=== PATIENT | female | born 1950 | race Caucasian/White ===

== ENCOUNTER 2018-12-12 16:27 | Inpatient (IN) ==
[2018-12-12] MEDS ORDERED: cloNIDine 0.1 MG TABLET PO STA (16:56)
[2018-12-12] MEDS ORDERED: ENOXAPARIN 100 MG/ML SYRINGE SUBCUT STA (17:31)
[2018-12-12] MEDS ORDERED: VANCOMYCIN INJ 1,000 MG in SODIUM CHLORIDE 0.9% 250 ML IV STA (17:31)
[2018-12-12] MEDS ORDERED: KETOROLAC 30 MG/1 ML VIAL IV STA (17:32)
[2018-12-12 18:42] LABS: Basophils # 0.1 10*3/uL (0.0-0.2); Basophils % 0.9 % (0.0-0.8); Eosinophils # 0.2 10*3/uL (0.0-0.87); Eosinophils % 1.8 % (0.00-10.9); Hematocrit 52.5 VOL% (35.7-47.0); Hemoglobin 17.1 GM/DL (12.0-16.0); Immature Granulocytes % 0.2 %; Immature Granulocytes Absolute 0.02 #; Lymphocytes # 1.4 10*3/uL (1.4-4.0); Lymphocytes % 15.7 % (21.3-54.2); Mean Corpuscular HGB Conc 32.6 GM/DL (32-36); Mean Corpuscular Volume 86.9 FL (87-102); Mean Platelet Volume 9.9 FL (9.6-12.0); Monocytes % 11.6 % (1.7-12.7); Neutrophils % 69.8 % (38.7-73.9); Platelet Count 199 T/CUMM (130-400); Red Blood Count 6.04 MC/CUMM (3.8-5.5); Red Cell Distribution Width 14.7 % (9.3-17.3); White Blood Count 8.7 T/CUMM (4-12)
[2018-12-12 18:57] LABS: INR 0.9; PT Patient Result 10.3 SECS (9.6-12.2); Partial Thromboplastin Time 29.9 SECS (20.8-36.0)
[2018-12-12 19:01] LABS: Bilirubin,Total 0.6 MG/DL (0.2-1.0); Calcium 9.6 MG/DL (8.5-10.1); Osmolality,Calculated 263.5 MOS/KG (273-304); Total Protein 7.8 G/DL (6.4-8.3)
[2018-12-12] MEDS ORDERED: hydrALAZINE 20 MG/1 ML VIAL IV PRN (21:22)
[2018-12-12] MEDS ORDERED: ONDANSETRON ODT 4 MG TABLET PO PRN (23:23)
[2018-12-12] MEDS ORDERED: NICOTINE 21 MG/24 HR PATCH TRANSDERM PRN (23:23)
[2018-12-12] MEDS ORDERED: traZODone 50 MG TABLET PO PRN (23:23)
[2018-12-12] MEDS ORDERED: DOCUSATE SODIUM 100 MG CAPSULE PO PRN (23:23)
[2018-12-12] MEDS ORDERED: ACETAMINOPHEN 325 MG TABLET PO PRN (23:23)
[2018-12-12] MEDS ORDERED: MAGNESIUM SULF RIDER 2 GM in PREMIX 1 EACH IV PRN (23:23)
[2018-12-12] MEDS ORDERED: PROMETHAZINE 25 MG TABLET PO PRN (23:23)
[2018-12-12] MEDS ORDERED: MAGNESIUM SULF RIDER 4 GM in PREMIX 1 EACH IV PRN (23:23)
[2018-12-13] MEDS: SODIUM CHLORIDE 0.9% 1,000 ML IV SCH ×3 (00:35→17:50)
[2018-12-13] MEDS: TRIAMCINOLONE 0.1% OINT 15 GM TUBE TOP SCH ×3 (00:35→20:46)
[2018-12-13] MEDS: POTASSIUM CHLORIDE 20 MEQ TABLET PO PRN ×3 (00:35→04:32)
[2018-12-13] MEDS: carvediloL 6.25 MG TABLET PO SCH ×3 (00:35→17:07)
[2018-12-13 02:34] LABS: Basophils # 0.1 10*3/uL (0.0-0.2); Basophils % 0.9 % (0.0-0.8); Eosinophils # 0.2 10*3/uL (0.0-0.87); Eosinophils % 3.1 % (0.00-10.9); Hematocrit 44.2 VOL% (35.7-47.0); Hemoglobin 14.5 GM/DL (12.0-16.0); Immature Granulocytes % 0.4 %; Immature Granulocytes Absolute 0.03 #; Lymphocytes # 1.7 10*3/uL (1.4-4.0); Lymphocytes % 22.8 % (21.3-54.2); Mean Corpuscular HGB Conc 32.8 GM/DL (32-36); Mean Platelet Volume 10.8 FL (9.6-12.0); Monocytes % 12.2 % (1.7-12.7); Neutrophils % 60.6 % (38.7-73.9); Platelet Count 167 T/CUMM (130-400); Red Blood Count 5.08 MC/CUMM (3.8-5.5); Red Cell Distribution Width 14.5 % (9.3-17.3); White Blood Count 7.4 T/CUMM (4-12)
[2018-12-13 02:52] LABS: Calcium 8.8 MG/DL (8.5-10.1)
[2018-12-13] MEDS ORDERED: ENOXAPARIN 80 MG/0.8 ML SYRINGE SUBCUT SCH (06:30)
[2018-12-13] MEDS: VANCOMYCIN INJ 1,250 MG in SODIUM CHLORIDE 0.9% 250 ML IV SCH (08:31)
[2018-12-13] MEDS: SERTRALINE 100 MG TABLET PO SCH (08:33)
[2018-12-13] MEDS: ASPIRIN EC 81 MG TABLET PO SCH (08:33)
[2018-12-13] MEDS: CHOLECALCIFEROL 1,000 UNIT TABLET PO SCH (08:33)
[2018-12-13] MEDS: GABAPENTIN 300 MG CAPSULE PO SCH (08:33)
[2018-12-13] MEDS: MULTIVITAMIN (CENTRUM) TABLET PO SCH (08:33)
[2018-12-13] MEDS: PANTOPRAZOLE 40 MG TABLET PO SCH (08:34)
[2018-12-13] MEDS: RIVAROXABAN 15 MG TABLET PO SCH (17:07)
[2018-12-14 04:35] LABS: Basophils # 0.1 10*3/uL (0.0-0.2); Basophils % 0.8 % (0.0-0.8); Eosinophils # 0.2 10*3/uL (0.0-0.87); Eosinophils % 2.6 % (0.00-10.9); Hematocrit 45.3 VOL% (35.7-47.0); Hemoglobin 14.5 GM/DL (12.0-16.0); Immature Granulocytes % 0.2 %; Immature Granulocytes Absolute 0.01 #; Lymphocytes # 1.4 10*3/uL (1.4-4.0); Lymphocytes % 22.2 % (21.3-54.2); Mean Corpuscular Volume 88.8 FL (87-102); Mean Platelet Volume 10.2 FL (9.6-12.0); Neutrophils % 61.2 % (38.7-73.9); Platelet Count 161 T/CUMM (130-400); Red Cell Distribution Width 14.5 % (9.3-17.3); White Blood Count 6.5 T/CUMM (4-12)
[2018-12-14 04:48] LABS: Calcium 8.4 MG/DL (8.5-10.1); Osmolality,Calculated 277.7 MOS/KG (273-304)
[2018-12-14] MEDS: SODIUM CHLORIDE 0.9% 1,000 ML IV SCH (06:43)
[2018-12-14] MEDS: MULTIVITAMIN (CENTRUM) TABLET PO SCH (08:44)
[2018-12-14] MEDS: GABAPENTIN 300 MG CAPSULE PO SCH (08:44)
[2018-12-14] MEDS: VANCOMYCIN INJ 1,250 MG in SODIUM CHLORIDE 0.9% 250 ML IV SCH (08:44)
[2018-12-14] MEDS: PANTOPRAZOLE 40 MG TABLET PO SCH (08:44)
[2018-12-14] MEDS: CHOLECALCIFEROL 1,000 UNIT TABLET PO SCH (08:44)
[2018-12-14] MEDS: ASPIRIN EC 81 MG TABLET PO SCH (08:44)
[2018-12-14] MEDS: carvediloL 6.25 MG TABLET PO SCH (08:45)
[2018-12-14] MEDS: RIVAROXABAN 15 MG TABLET PO SCH (08:45)
[2018-12-14] MEDS: SERTRALINE 100 MG TABLET PO SCH (08:45)
[2018-12-14] MEDS: TRIAMCINOLONE 0.1% OINT 15 GM TUBE TOP SCH (08:45)
[2018-12-14 12:50] VITALS: BP 152/77
== END 2018-12-14 13:15 | disposition home or self-care (01) | DRG 300 ==
LOC: N.ED 16:27 → N.EDINP 20:18 → N.4E 20:31
PROVIDERS: ADMIT Internal Medicine; ATTEND Internal Medicine

== ENCOUNTER 2019-06-22 16:13 | Inpatient (IN) ==
[2019-06-22] MEDS ORDERED: ONDANSETRON 4 MG/2 ML VIAL IV STA (16:54)
[2019-06-22] MEDS ORDERED: HYDROmorphone 2 MG/1 ML VIAL IV STA (16:54)
[2019-06-22] MEDS ORDERED: SODIUM CHLORIDE 0.9% 1,000 ML IV STA ×2 (16:54→20:48)
[2019-06-22 18:42] LABS: Basophils # 0.1 10*3/uL (0.0-0.2); Basophils % 0.5 % (0.0-0.8); Eosinophils # 0.3 10*3/uL (0.0-0.87); Hematocrit 40.5 VOL% (35.7-47.0); Hemoglobin 12.8 GM/DL (12.0-16.0); Immature Granulocytes % 2.4 %; Immature Granulocytes Absolute 0.35 #; Lymphocytes # 1.5 10*3/uL (1.4-4.0); Lymphocytes % 9.8 % (21.3-54.2); Mean Corpuscular HGB Conc 31.6 GM/DL (32-36); Mean Platelet Volume 10.7 FL (9.6-12.0); Monocytes % 8.1 % (1.7-12.7); Neutrophils % 77.2 % (38.7-73.9); Platelet Count 235 T/CUMM (130-400); Red Blood Count 4.88 MC/CUMM (3.8-5.5); Red Cell Distribution Width 16.5 % (9.3-17.3); White Blood Count 14.9 T/CUMM (4-12)
[2019-06-22] MEDS ORDERED: VANCOMYCIN INJ 1,250 MG in SODIUM CHLORIDE 0.9% 250 ML IV STA (18:48)
[2019-06-22] MEDS ORDERED: CEFEPIME 2,000 MG in SODIUM CHLORIDE 0.9% 100 ML IV STA (18:49)
[2019-06-22 19:04] LABS: Albumin 1.9 G/DL (3.4-5.0); Band Neutrophils 1 % (0-10); Bilirubin,Total 0.4 MG/DL (0.2-1.0); Calcium 8.7 MG/DL (8.5-10.1); Eosinophils 7 % (0-10); Lymphocytes 16 % (20-55); Metamyelocytes 1 %; Osmolality,Calculated 266.1 MOS/KG (273-304); Segmented Neutrophils 74 % (50-85); Total Cells Counted 100; Total Protein 6.9 G/DL (6.4-8.3)
[2019-06-22 19:05] LABS: Platelet Estimate Normal; Reactive Lymphocytes Slight
[2019-06-22] MEDS ORDERED: POTASSIUM CHLORIDE 20 MEQ TABLET PO STA (19:09)
[2019-06-22] MEDS ORDERED: MORPHINE 4 MG/1 ML VIAL IV PRN (20:37)
[2019-06-22] MEDS ORDERED: ONDANSETRON 4 MG/2 ML VIAL IV PRN (20:37)
[2019-06-22] MEDS ORDERED: NICOTINE 21 MG/24 HR PATCH TRANSDERM PRN (20:37)
[2019-06-22] MEDS ORDERED: ACETAMINOPHEN 325 MG TABLET PO PRN (20:37)
[2019-06-22] MEDS ORDERED: guaiFENesin/DM ER 600-30 MG TABLET PO PRN (20:37)
[2019-06-22] MEDS ORDERED: GLUCAGON 1 MG VIAL IM PRN (20:37)
[2019-06-22] MEDS ORDERED: ALUMINUM/MAGNES/SIMETH MAX STR 30 ML UDCUP PO PRN (20:37)
[2019-06-22] MEDS ORDERED: diphenhydrAMINE CAP 25 MG CAPSULE PO PRN (20:37)
[2019-06-22] MEDS ORDERED: hydrALAZINE 20 MG/1 ML VIAL IV PRN (20:37)
[2019-06-22] MEDS ORDERED: DEXTROSE 50% 25 GM/50 ML VIAL IV PRN (20:37)
[2019-06-22] MEDS ORDERED: VANCOMYCIN INJ 1,000 MG in SODIUM CHLORIDE 0.9% 250 ML IV PRN (21:00)
[2019-06-22] MEDS ORDERED: VANCOMYCIN 1,000 MG VIAL ONE (21:18)
[2019-06-22] MEDS ORDERED: NOREPINEPHRINE 8 MG in SODIUM CHLORIDE 0.9% 242 ML IV PRN (22:57)
[2019-06-22] MEDS ORDERED: NOREPINEPHRINE 4 MG/4 ML VIAL IV ONE (23:00)
[2019-06-23] MEDS: SODIUM CHLORIDE 0.9% 1,000 ML IV SCH ×2 (01:00→15:20)
[2019-06-23 01:34] LABS: Apearance,Urine Slightly Hazy (Clear); Bacteria,Urine Moderate /HPF (Few); Bilirubin,Urine Negative (Negative); Blood, Urine Large mg/dL (Negative); Glucose,Urine (UA) Negative (Negative); Ketones,Urine Negative (Negative); Nitrite,Urine Negative (Negative); Protein,Urine 30 MG/DL; RBC,Urine 2 /HPF (0-4); Squamous Epithelial Cell,Urine Occasional /HPF (0-10); Urine Color Yellow (Yellow); Urine Specific Gravity 1.006 (1.001-1.035); Urine Urobilinogen < 2.0 EU/DL (0.2-1.0); WBC,Urine 12 /HPF (0-6)
[2019-06-23 04:18] LABS: Basophils # 0.1 10*3/uL (0.0-0.2); Basophils % 0.5 % (0.0-0.8); Eosinophils # 0.3 10*3/uL (0.0-0.87); Eosinophils % 1.8 % (0.00-10.9); Hematocrit 41.9 VOL% (35.7-47.0); Hemoglobin 13.1 GM/DL (12.0-16.0); Immature Granulocytes % 1.4 %; Immature Granulocytes Absolute 0.24 #; Lymphocytes # 1.4 10*3/uL (1.4-4.0); Mean Corpuscular HGB Conc 31.3 GM/DL (32-36); Mean Corpuscular Volume 84.3 FL (87-102); Mean Platelet Volume 10.3 FL (9.6-12.0); Monocytes % 8.1 % (1.7-12.7); Neutrophils % 80.2 % (38.7-73.9); Platelet Count 229 T/CUMM (130-400); Red Blood Count 4.97 MC/CUMM (3.8-5.5); White Blood Count 17.3 T/CUMM (4-12)
[2019-06-23 04:40] LABS: Albumin 1.7 G/DL (3.4-5.0); Bilirubin,Total 0.5 MG/DL (0.2-1.0); Calcium 8.4 MG/DL (8.5-10.1); Osmolality,Calculated 275.5 MOS/KG (273-304); Total Protein 6.2 G/DL (6.4-8.3)
[2019-06-23 05:59] LABS: Band Neutrophils 2 % (0-10); Eosinophils 1 % (0-10); Lymphocytes 6 % (20-55); Platelet Estimate Adequate; Segmented Neutrophils 79 % (50-85); Total Cells Counted 100
[2019-06-23] MEDS: RIVAROXABAN 20 MG TABLET PO SCH (08:06)
[2019-06-23] MEDS: CEFEPIME 1,000 MG in SODIUM CHLORIDE 0.9% 100 ML IV SCH ×2 (09:00→20:20)
[2019-06-23] MEDS: metroNIDAZOLE INJ 500 MG in PREMIX 1 EACH IV SCH ×3 (11:40→22:30)
[2019-06-24] MEDS: metroNIDAZOLE INJ 500 MG in PREMIX 1 EACH IV SCH ×4 (04:03→21:21)
[2019-06-24 05:20] LABS: Basophils # 0.1 10*3/uL (0.0-0.2); Basophils % 0.5 % (0.0-0.8); Eosinophils # 0.2 10*3/uL (0.0-0.87); Eosinophils % 1.8 % (0.00-10.9); Hematocrit 41.1 VOL% (35.7-47.0); Hemoglobin 12.7 GM/DL (12.0-16.0); Immature Granulocytes % 1.1 %; Immature Granulocytes Absolute 0.14 #; Lymphocytes % 8.1 % (21.3-54.2); Mean Corpuscular HGB Conc 30.9 GM/DL (32-36); Mean Corpuscular Volume 85.3 FL (87-102); Monocytes % 5.5 % (1.7-12.7); Platelet Count 284 T/CUMM (130-400); Red Blood Count 4.82 MC/CUMM (3.8-5.5); White Blood Count 12.6 T/CUMM (4-12)
[2019-06-24 05:35] LABS: Calcium 8.7 MG/DL (8.5-10.1); Osmolality,Calculated 280.8 MOS/KG (273-304)
[2019-06-24] MEDS: SODIUM CHLORIDE 0.9% 1,000 ML IV SCH (05:45)
[2019-06-24] MEDS: RIVAROXABAN 20 MG TABLET PO SCH (08:22)
[2019-06-24] MEDS: CEFEPIME 1,000 MG in SODIUM CHLORIDE 0.9% 100 ML IV SCH ×2 (08:53→19:28)
[2019-06-24] MEDS: POTASSIUM CHLORIDE 20 MEQ TABLET PO SCH (11:21)
[2019-06-24 17:54] LABS: Total Protein 24 Hr Ur Result 1262 MG/24HR (0-149.1); Total Volume,Urine 2475 ML (400-2000)
[2019-06-24] MEDS: DOXEPIN 25 MG CAPSULE PO SCH (21:21)
[2019-06-24] MEDS: carvediloL 6.25 MG TABLET PO SCH (21:21)
[2019-06-25] MEDS: metroNIDAZOLE INJ 500 MG in PREMIX 1 EACH IV SCH ×2 (03:26→10:26)
[2019-06-25 04:57] LABS: Basophils # 0.1 10*3/uL (0.0-0.2); Basophils % 0.5 % (0.0-0.8); Eosinophils # 0.2 10*3/uL (0.0-0.87); Eosinophils % 1.7 % (0.00-10.9); Immature Granulocytes % 0.8 %; Lymphocytes # 1.2 10*3/uL (1.4-4.0); Lymphocytes % 8.7 % (21.3-54.2); Mean Corpuscular HGB Conc 31.7 GM/DL (32-36); Mean Corpuscular Volume 82.7 FL (87-102); Mean Platelet Volume 9.8 FL (9.6-12.0); Monocytes % 4.9 % (1.7-12.7); Neutrophils % 83.4 % (38.7-73.9); Platelet Count 299 T/CUMM (130-400); Red Blood Count 4.96 MC/CUMM (3.8-5.5); Red Cell Distribution Width 17.1 % (9.3-17.3); White Blood Count 13.2 T/CUMM (4-12)
[2019-06-25] MEDS: PANTOPRAZOLE 20 MG TABLET PO SCH (08:51)
[2019-06-25] MEDS: SERTRALINE 100 MG TABLET PO SCH (08:51)
[2019-06-25] MEDS: CEFEPIME 1,000 MG in SODIUM CHLORIDE 0.9% 100 ML IV SCH ×2 (08:51→20:50)
[2019-06-25] MEDS: RIVAROXABAN 20 MG TABLET PO SCH (08:51)
[2019-06-25] MEDS: GABAPENTIN 300 MG CAPSULE PO SCH (08:51)
[2019-06-25] MEDS: POTASSIUM CHLORIDE 20 MEQ TABLET PO SCH (08:51)
[2019-06-25] MEDS: carvediloL 6.25 MG TABLET PO SCH ×2 (08:52→20:50)
[2019-06-25] MEDS: CHOLECALCIFEROL 1,000 UNIT TABLET PO SCH (08:52)
[2019-06-25] MEDS: ASPIRIN EC 81 MG TABLET PO SCH (08:52)
[2019-06-25] MEDS ORDERED: POTASSIUM CHLORIDE 20 MEQ TABLET PO SCH (10:10)
[2019-06-25] MEDS ORDERED: MAGNESIUM SULF RIDER 1 GM in PREMIX 1 EACH IV ONE (11:00)
[2019-06-25] MEDS: DOXEPIN 25 MG CAPSULE PO SCH (20:50)
[2019-06-26] MEDS: cefTRIAXone 1,000 MG in SYRINGE 1 EACH IV SCH (09:24)
[2019-06-26] MEDS: RIVAROXABAN 20 MG TABLET PO SCH (09:24)
[2019-06-26] MEDS: SERTRALINE 100 MG TABLET PO SCH (09:24)
[2019-06-26] MEDS: GABAPENTIN 300 MG CAPSULE PO SCH (09:24)
[2019-06-26] MEDS: POTASSIUM CHLORIDE 20 MEQ TABLET PO SCH (09:24)
[2019-06-26] MEDS: PANTOPRAZOLE 20 MG TABLET PO SCH (09:24)
[2019-06-26] MEDS: carvediloL 6.25 MG TABLET PO SCH ×2 (09:24→21:12)
[2019-06-26] MEDS: ASPIRIN EC 81 MG TABLET PO SCH (09:24)
[2019-06-26] MEDS: CHOLECALCIFEROL 1,000 UNIT TABLET PO SCH (09:24)
[2019-06-26] MEDS: DOXEPIN 25 MG CAPSULE PO SCH (21:12)
[2019-06-27 07:37] LABS: Basophils # 0.1 10*3/uL (0.0-0.2); Basophils % 0.8 % (0.0-0.8); Eosinophils # 0.3 10*3/uL (0.0-0.87); Eosinophils % 2.4 % (0.00-10.9); Hematocrit 40.9 VOL% (35.7-47.0); Hemoglobin 12.8 GM/DL (12.0-16.0); Immature Granulocytes % 1.4 %; Immature Granulocytes Absolute 0.17 #; Lymphocytes # 1.3 10*3/uL (1.4-4.0); Mean Corpuscular HGB Conc 31.3 GM/DL (32-36); Mean Corpuscular Volume 82.6 FL (87-102); Mean Platelet Volume 9.7 FL (9.6-12.0); Neutrophils % 78.4 % (38.7-73.9); Platelet Count 298 T/CUMM (130-400); Red Blood Count 4.95 MC/CUMM (3.8-5.5); Red Cell Distribution Width 17.5 % (9.3-17.3); White Blood Count 11.8 T/CUMM (4-12)
[2019-06-27] MEDS: cefTRIAXone 1,000 MG in SYRINGE 1 EACH IV SCH (08:30)
[2019-06-27] MEDS: RIVAROXABAN 20 MG TABLET PO SCH (08:30)
[2019-06-27] MEDS: GABAPENTIN 300 MG CAPSULE PO SCH (08:30)
[2019-06-27] MEDS: POTASSIUM CHLORIDE 20 MEQ TABLET PO SCH (08:30)
[2019-06-27] MEDS: ASPIRIN EC 81 MG TABLET PO SCH (08:30)
[2019-06-27] MEDS: CHOLECALCIFEROL 1,000 UNIT TABLET PO SCH (08:30)
[2019-06-27] MEDS: SERTRALINE 100 MG TABLET PO SCH (08:30)
[2019-06-27] MEDS: carvediloL 6.25 MG TABLET PO SCH ×2 (08:30→21:00)
[2019-06-27] MEDS: PANTOPRAZOLE 20 MG TABLET PO SCH (08:30)
[2019-06-27 08:42] LABS: Calcium 8.6 MG/DL (8.5-10.1); Osmolality,Calculated 273.8 MOS/KG (273-304)
[2019-06-27] MEDS: DOXEPIN 25 MG CAPSULE PO SCH (21:00)
[2019-06-28] MEDS: ASPIRIN EC 81 MG TABLET PO SCH (09:00)
[2019-06-28] MEDS: CHOLECALCIFEROL 1,000 UNIT TABLET PO SCH (09:00)
[2019-06-28] MEDS: cefTRIAXone 1,000 MG in SYRINGE 1 EACH IV SCH (09:00)
[2019-06-28] MEDS: RIVAROXABAN 20 MG TABLET PO SCH (09:00)
[2019-06-28] MEDS: POTASSIUM CHLORIDE 20 MEQ TABLET PO SCH (09:00)
[2019-06-28] MEDS: carvediloL 6.25 MG TABLET PO SCH (09:00)
[2019-06-28] MEDS: PANTOPRAZOLE 20 MG TABLET PO SCH (09:00)
[2019-06-28] MEDS: GABAPENTIN 300 MG CAPSULE PO SCH (09:01)
[2019-06-28] MEDS: SERTRALINE 100 MG TABLET PO SCH (09:01)
[2019-06-28 13:03] VITALS: BP 166/74
== END 2019-06-28 13:58 | disposition home or self-care (01) | DRG 871 ==
LOC: N.ED 16:13 → N.EDINP 20:37 → SUATTDRO 20:37 → N.2E 22:12 → N.ICU 23:33 → N.2E 06-24 12:58
PROVIDERS: ADMIT Internal Medicine; ATTEND Internal Medicine

== ENCOUNTER 2020-10-29 08:48 | Inpatient (IN) ==
[2020-10-29] MEDS ORDERED: ALBUMIN 25% 25 GM/100 ML VIAL IV ONE (09:12)
[2020-10-29] MEDS ORDERED: SODIUM CHLORIDE 0.9% 1,000 ML IV STA (09:12)
[2020-10-29 09:37] LABS: Basophils # 0.1 10*3/uL (0.0-0.2); Basophils % 0.3 % (0.0-0.8); Hematocrit 41.1 VOL% (35.7-47.0); Hemoglobin 13.8 GM/DL (12.0-16.0); Immature Granulocytes % 1.8 %; Lymphocytes # 0.3 10*3/uL (1.4-4.0); Mean Corpuscular HGB Conc 33.6 GM/DL (32-36); Mean Corpuscular Volume 86.9 FL (87-102); Mean Platelet Volume 9.6 FL (9.6-12.0); Monocytes % 4.9 % (1.7-12.7); Platelet Count 590 T/CUMM (130-400); Red Blood Count 4.73 MC/CUMM (3.8-5.5); Red Cell Distribution Width 17.4 % (9.3-17.3); White Blood Count 27.9 T/CUMM (4-12)
[2020-10-29 10:04] LABS: INR 2.2; PT Patient Result 23.6 SECS (10.5-12.0)
[2020-10-29 10:09] LABS: Albumin 2.3 G/DL (3.4-5.0); Bilirubin,Total 2.1 MG/DL (0.20-1.00); Calcium 8.8 MG/DL (8.5-10.1); Osmolality,Calculated 276.2 MOS/KG (273-304); Potassium 4.8 MMOL/L (3.5-5.1); Total Protein 6.4 G/DL (6.4-8.2)
[2020-10-29 10:11] LABS: Partial Thromboplastin Time 122.3 SECS (23.9-33.8)
[2020-10-29 10:22] LABS: Band Neutrophils 12 % (0-10); Segmented Neutrophils 85 % (50-85); Total Cells Counted 100
[2020-10-29 10:24] LABS: Burr Cells Slight; Ovalocytes Slight
[2020-10-29] MEDS ORDERED: ALBUTEROL 1.25 MG/3 ML NEB RESP TX PRN (12:50)
[2020-10-29] MEDS ORDERED: PROCHLORPERAZINE 10 MG/2 ML VIAL IV PRN (12:53)
[2020-10-29] MEDS ORDERED: ONDANSETRON 4 MG/2 ML VIAL IV PRN (12:53)
[2020-10-29] MEDS ORDERED: VANCOMYCIN INJ 1,000 MG in SODIUM CHLORIDE 0.9% 250 ML IV ONE (14:21)
[2020-10-29] MEDS ORDERED: SODIUM CHLORIDE 0.9% 1,000 ML IV SCH (15:00)
[2020-10-29] MEDS: CEFEPIME 1,000 MG in SODIUM CHLORIDE 0.9% 100 ML IV SCH (17:48)
[2020-10-29] MEDS: LACTATED RINGERS 1,000 ML IV SCH (17:56)
[2020-10-30] MEDS: LACTATED RINGERS 1,000 ML IV SCH ×3 (00:45→16:57)
[2020-10-30] MEDS: HYDROmorphone 2 MG/1 ML VIAL IV PRN ×2 (02:16→10:59)
[2020-10-30 05:07] LABS: INR 1.1; PT Patient Result 12.5 SECS (10.5-12.0); Partial Thromboplastin Time 32.7 SECS (23.9-33.8)
[2020-10-30 05:13] LABS: Basophils % 0.3 % (0.0-0.8); Hematocrit 35.8 VOL% (35.7-47.0); Hemoglobin 12.2 GM/DL (12.0-16.0); Immature Granulocytes % 0.6 %; Immature Granulocytes Absolute 0.08 #; Lymphocytes # 0.3 10*3/uL (1.4-4.0); Mean Corpuscular HGB Conc 34.1 GM/DL (32-36); Mean Corpuscular Volume 87.3 FL (87-102); Mean Platelet Volume 9.8 FL (9.6-12.0); Monocytes % 7.4 % (1.7-12.7); Neutrophils % 89.7 % (38.7-73.9); Red Cell Distribution Width 17.4 % (9.3-17.3)
[2020-10-30 05:14] LABS: Platelet Count 342 T/CUMM (130-400); White Blood Count 13.9 T/CUMM (4-12)
[2020-10-30 05:23] LABS: Band Neutrophils 2 % (0-10); Lymphocytes 2 % (20-55); Platelet Estimate Normal; Segmented Neutrophils 85 % (50-85); Total Cells Counted 100
[2020-10-30 05:42] LABS: Calcium 7.7 MG/DL (8.5-10.1); Osmolality,Calculated 283.2 MOS/KG (273-304); Potassium 4.6 MMOL/L (3.5-5.1)
[2020-10-30] MEDS ORDERED: PANTOPRAZOLE 40 MG TABLET PO SCH (09:00)
[2020-10-30] MEDS ORDERED: HEPARIN LOCK FLUSH 500 UNIT/5 ML SYRINGE IV ONE (15:45)
[2020-10-30 17:02] VITALS: BP 86/50
[2020-10-30] MEDS: CEFEPIME 1,000 MG in SODIUM CHLORIDE 0.9% 100 ML IV SCH (17:02)
== END 2020-10-30 19:35 | disposition hospice, home (50) | DRG 682 ==
LOC: N.ED 08:48 → N.EDINP 12:29 → N.4E 12:49
PROVIDERS: ADMIT Emergency Medicine; ATTEND Emergency Medicine